=== PATIENT | male | born 1975 | race Caucasian/White ===

== ENCOUNTER 2022-03-12 09:46 | Emergency (ER) | payer MEDICAID, OTHER ==
[~2022-03-12] VITALS: Ht 185.4 cm; Wt 91.0 kg
[2022-03-12 09:51] VITALS: BP 145/83
[2022-03-12] MEDS ORDERED: LORAZEPAM 0.5MG TABLET PO ONE (11:15)
[2022-03-12 12:44] LABS: CHLORIDE 94 mEq/L (98-107)
[2022-03-12] MEDS ORDERED: LORA-249 MT (12:54)
== END 2022-03-12 13:44 | disposition home or self-care (01) ==
LOC: ER 12:16
DX: F41.9 Anxiety disorder, unspecified (principal); E87.1 Hypo-osmolality and hyponatremia; F43.10 Post-traumatic stress disorder, unspecified; G47.00 Insomnia, unspecified; G40.909 Epilepsy, unspecified, not intractable, without status epilepticus
CPT/HCPCS: 36415; 80048; 99283